=== PATIENT | female | born 1955 | race Caucasian/White ===

== ENCOUNTER → 2017-09-04 | Outpatient (CLI) | payer OTHER ==
[~2017-09-04] MED LIST: BENA20TA48 PO; GEMF600T60 PO; METF850T PO; SIMV20TA6 PO
--- NOTE | 2017-09-04 14:57 | HKNOTE ---
DATE OF SERVICE: 09/04/2017 CHIEF COMPLAINT: Right hip pain. HISTORY OF PRESENT ILLNESS: This is a 61-year-old female who states that she is having pain in her right buttock. She has had a previous history of a tumor with subsequent removal performed at [facility]. She states that she is having the same symptoms as before. She denies any gr oin pain. She denies any radiation of the pain. She denies any back pain. She denies any numbness or weakness. She denies any recent history of trauma. She states that the pain is isolated to the right buttock. GAIT: Nonantalgic gait. PHYSICAL EXAMINATION: RIGHT HIP: Zero to 110 degrees of flexion, 30 degrees, internal rotation, 50 degrees external rotat ion, 30 degrees of abduction. Negative KAYLA. Negative straight leg raise. No obligate external rotation. X-rays right hip, 2 views, 2-view, of the right hip demonstrate minimal degenerative changes of the right hip. MRI of the right hip. There is minimal joint space narrowing. No masses are seen. IMPRESSION: A 61-year-old female with right hip, mild osteoarthritis. PLAN: I discussed treatment options with Ms. Bentley. I explained to her that given the minimal nicole unt of hip arthritis, it is unlikely to be the cause of her pain. We will request authorization for consultation with orthopedic oncology. She was advised on weight loss. She does not require pain medications. She will follow up with me as needed in the future. Dictated By: BRIGID ROSSI/MIGUEL A Conf#: [id number] DID#: [id number]
--- NOTE | 2017-09-04 23:17 | RADRPT ---
PROCEDURE: XR Right hip and pelvis. CLINICAL INDICATION: Right hip pain and pelvic pain. TECHNIQUE: 3 views. Frontal pelvis. Frontal and lateral right hip. COMPARISON: None. FINDINGS: There is no fracture or dislocation. The soft tissues are normal. Articular surfaces are intact. There is no lytic or blastic lesion. Surgical clips are present overlying the right side of the pelvis laterally. IMPRESSION: 1. Unremarkable images of the right hip. 2. Surgical clips overlying the right side of the pelvis laterally. 3. Otherwise unremarkable frontal view of the pelvis. RPTAT: QQ .Dae Mendes MD, Date Time Electronically viewed and signed by .Dae Mendes MD, on 09/04/2017 23:17 .R/
== END | disposition home or self-care (01) ==
LOC: HKI 13:43
PROVIDERS: ATTEND Orthopaedic Surgery Adult Reconstructive Orthopaedic Surgery
DX: M16.11 Unilateral primary osteoarthritis, right hip (principal)
CPT/HCPCS: 73502; G0463

== ENCOUNTER 2017-11-27 05:20 | Day surgery (SDC) | END 2017-11-27 11:11 | disposition home or self-care (01) ==

== ENCOUNTER 2018-01-22 09:54 | Day surgery (SDC) | END 2018-01-22 14:37 | disposition home or self-care (01) ==